=== PATIENT | male | born 1955 | race Caucasian/White ===

== ENCOUNTER 2019-02-12 11:32 | Emergency (ER) | payer OTHER ==
[2019-02-12] MEDS ORDERED: Adacel (T-DAP) 0.5 ML SYRINGE ONE (11:53)
[2019-02-12 13:08] LABS: HIV (1/2) Antibody/Antigen Non-Reactive (NonReactive); HIV 1/2 INDEX 0.09 S/CO (<1.00); Hep C IgG Ab Non-Reactive (NonReactive); Hep C Index 0.05 S/CO (0-0.79)
[2019-02-12 13:09] LABS: HBSAB Concentration 216.08 mIU/mL; Hep B Surf AB Reactive (NonReactive)
[2019-02-12 16:36] LABS: HBSAg Index 0.57 S/CO (0-0.99); Hep B Surf Ag Non-Reactive S/CO (NonReactive)
== END 2019-02-12 12:00 | disposition home or self-care (01) ==
LOC: ERS 11:32
DX: S61.230A Puncture wound without foreign body of right index finger without damage to nail, initial encounter (principal); W26.8XXA Contact with other sharp object(s), not elsewhere classified, initial encounter
CPT/HCPCS: 86706; 86803; 87340; 87389; 90471; 90715